=== PATIENT | female | born 1990 | race Caucasian/White ===

== ENCOUNTER 2018-01-01 19:32 | Inpatient (IN) | payer OTHER ==
[2018-01-01 21:01] LABS: #Eosinphils 0.1 thou/uL (0.0-0.7); #Lymphocytes 2.7 thou/uL (1.20-3.40); #Monocytes 0.5 thou/uL (0.11-0.59); #Neutrophils 5.3 thou/uL (1.40-6.50); %Basophils 0.6 % (0.0-1.0); %Eosinophils 0.7 % (0.0-10.0); %Lymphocytes 31.1 % (21.0-51.0); %Monocytes 5.3 % (0.0-10.0); %Neutrophils 62.4 % (42.0-75.0); Hemoglobin 13.7 g/dL (12.0-16.0); Mean Corpuscular HGB CONC 36.4 g/dL (32.0-36.0); Mean Corpuscular Hemoglobin 33.6 pg (27.0-31.0); Mean Corpuscular Volume 92.2 fL (78.0-98.0); Mean Platelet Volume 7.4 fL (7.4-10.4); Platelet Count 271 thou/uL (130-400); RBC Distribution Width 11.8 % (11.5-14.5); Red Blood Cell (RBC) Count 4.07 mill/uL (4.20-5.40); White Blood Cell (WBC) Count 8.5 thou/uL (4.8-10.8)
--- NOTE | 2018-01-01 21:19 | PDOC.FPRHP ---
- History of Present Illness Chief Complaint: vomiting/rabdo tx History of Present Illness: Patient is a 27 yo F presenting with vomiting and diarrhea since this morning. Patient states she had a hard arm workout on Wednesday - she began to feel sore, fatigued, and began to throw up yesterday. She went to the ER in [place] where they diagnosed her with [place]dom[place] [address] at this time. Patient endorses vomiting X2 and diarrhea since last night. She also endorses crampy abdominal pain since yesterday as well as a headache. She denies fever, chest pain, SOB, or change in urine color. - Allergies/Adverse Reactions Allergies Allergy/AdvReac Type Severity Reaction Status Date / Time hepatitis B immune globulin Allergy Verified 01/01/18 23:12 - Home Medications Medication Instructions Recorded Confirmed Type Omeprazole/Sodium Bicarbonate 40 mg PO DAILY 01/01/18 01/01/18 History [Omeprazole-Bicarb 40-1,100 Cap] clonazePAM [Clonazepam] 0.5 mg PO DAILY 01/01/18 01/01/18 History - History PMHx: GERD, gastritis PSHx: cholecystectomy FHx: father: HBP, HLD Social: denies tobacco or drug use; occasionally drinks alcohol - Review of Systems General: reports: fatigue. denies: fever/chills, weight/appetite/sleep changes , night sweats Eyes: denies: eye pain, vision changes ENT: denies: nasal congestion, rhinorrhea Respiratory: denies: cough, congestion, shortness of breath, exercise intolerance Cardiovascular: denies: chest pain, palpitation, edema Gastrointestinal: reports: nausea, vomiting (X2 episodes), diarrhea (X1 episode) , abdominal pain (crampy pain that comes and goes). denies: constipation, GI bleeding Genitourinary: denies: incontinence, dysuria, polyuria Skin: denies: rashes, lesions, itching Musculoskeletal: reports: pain. denies: tenderness, stiffness, swelling Neurological: denies: numbness, syncope, seizure, weakness Psychological: denies: anxiety, depression - Vital signs BP: 13/77 HR: 79 RR: 16 Tmax: 98.4 Pox: 96% on RA Wt: 95.25kg - Physical Exam Constitutional: NAD, awake, alert and oriented, well developed HEENT: normocephalic and atraumatic, EOMI, grossly normal vision, grossly normal hearing, other (MM dry) Heart: RRR, normal S1/S2, no murmurs/rubs/gallops, pulses present Lungs: CTAB, no respiratory distress, good air movement, no rales/rhonchi, no wheezing Abdomen: soft, non-tender, bowel sounds present, no masses/distention Musculoskeletal: normal structure, normal tone, ROM grossly normal Neurological: no focal deficit, CN II-XII intact Skin: no rash/lesions, good turgor, capillary refill <2 seconds Psychiatric: normal mood and affect FMR H&P: Results - Labs Result Diagrams: 01/01/18 20:51 01/02/18 05:18 Lab results: WBC 8.5 thou/uL (4.8-10.8) 01/01/18 20:51 Hgb 13.7 g/dL (12.0-16.0) 01/01/18 20:51 Hct 37.6 % (36.0-47.0) 01/01/18 20:51 MCV 92.2 fL (78.0-98.0) 01/01/18 20:51 Plt Count 271 thou/uL (130-400) 01/01/18 20:51 Neutrophils % 62.4 % (42.0-75.0) 01/01/18 20:51 CK - > 40,000 Na 140 K 3.4 Cl 105 CO2 23 Gluc 97 BUN 4.1 Cr 0.7 Albumin 4.4 T. Bili 1.0 AST 468 ALT 140 ALK 83 Ca 9.80 - EKG Interpretation EKG: normal sinus rhythm FMR H&P: A/P - Problem List (1) Rhabdomyolysis Current Visit: Yes Status: Acute Code(s): M62.82 - RHABDOMYOLYSIS Assessment and Plan: - Admit to medicine - Strict I&Os - Will begin LR 1000 mls @ 300mls/hr - zofran PRN for nausea - BMP Q4hr X 6 - CMP, CK in the AM - Will obtain UDS, serum alcohol (2) GERD (gastroesophageal reflux disease) Current Visit: Yes Status: Acute Code(s): K21.9 - GASTRO-ESOPHAGEAL REFLUX DISEASE WITHOUT ESOPHAGITIS Assessment and Plan: - Continue home med of Omeprazole 40mg - Plan DISPO: admit to medicine, likely >2 night stay Discussed case with Dr. Newton CODE: FULL FMR H&P: Upper Level - Pertinent history 27 y/o F w/ no sig PMHx presents for eval of worsening UE pain and elevated CK from check yesterday found at [place] ER. Pt reportedly performed an intense upper body work-out w/ severe UE cramping pain on Wednesday. Her pain was not improving which prompted her ER visit. Initial CK from yesterday was 23K and patient was told to return if her sxs did not improve or if she began to have nausea and vomitting. Pt reports onset of diarrhea last night and nausea and vomitting x2 today prompting return visit. Repeat CK >40,000. Pt denies any red discoloration to her urine. Endorses continued crampy UE pain L>R. No other complaints. Denies any numbness and tingling in her UE's. Pt was give 2L NS in the ER. - Pertinent findings Vitals Bp 123/77 HR 79 RR 16 O2sat 96% RA Temp 98.4 Weight 95.25 kg CK >40,000 Na 140 K 3.4 Cl 105 CO2 23 Gluc 97 BUN 4.1 Cr 0.7 Albumin 4.4 T. Bili 1.0 AST 468 ALT 140 ALK 83 Ca 9.80 WBC 8.46 Hgb 14.2 EKG - NSR at [address] segment changes or T-wave inversion identified - Plan Date/Time: 01/01/182115 Yumiko Viveros MD, have evaluated this patient and agree with findings/plan as outlined by international trade manager resident. Pertinent changes/additions are listed here. 27 y/o F w/: 1. Rhabdomyolysis w/ significantly elevated CK >40,000 - Pt given 2L NS prior to admission. Will give an additional 1Lbolus of NS then start IVF at a rate of 300 mL/hr with strict I/Os for goal UOP of 200-300 mL/ Hr in hopes to prevent heme-induced RADHA. Will adjust IVF rate to meet this goal. Will defer starting bicarbonate at this time 2/2 no clear evidence that alkaline diuresis is more effective than saline diuresis in preventing RADHA. -Upon review of lab work from outside ER, pt w/o RADHA, hypocalcemia, or gross electrolyte abnormality. Will add a phosphate and uric acid for complete work- up. Pt w/ good distal pulses and no neurological findings concerning for compartment syndrome at this time. Will continue to monitor. - Pt given NS w/ 20KCl in outside ER, will continue to monitor potassium level and supplement PRN -During the initial fluid resuscitation phase will plan to check BMP q4hrs to monitor for development of electrolyte abnormalities. If this remains stable will plan to space these out. 2. Transaminitis likely 2/2 #1 This is likely due to pts comorbid rhabdomyolysis. However, the work-out that patient described does not sound intensive enough to cause such an elevation of her CK. Will plan to check UDS and serum EtOH to r/o other possible etiologies. 3. GERD Will continue w/ home omeprazole CODE STATUS: FULL CODE LOS: >2 midnights Attending Addendum - Attending Addendum Date/Time: 01/02/18 1810 I personally evaluated the patient and discussed the management with Dr. Geraldine Estrada. I agree with the History, Examination, Assessment and Plan documented above with any addition or exceptions noted below. 27 y/o F with worsening Bilateral UE pain and elevated CK after evaluation yesterday at [place] ER. She underwent an intense upper body workout lasting ~ 45 minutes and subsequently developed severe Bilat UE cramping pain on Wednesday. Her pain was not improving which prompted her ER visit. Initial CK from [place] yesterday was 23,000 and patient was told to return if her sxs did not improve or if she began to have nausea and vomitting. Pt reports onset of diarrhea last night, nausea and vomitting x2, and Headache today prompting return visit. Repeat CK >40,000. Pt denies any red discoloration to her urine. Endorses continued crampy Bilat UE pain L>R. No other complaints.Pt was give 2L NS in the ER. and started on LR at 200 ml/Hr. This morning her CK is down wot 28,814 and she feels better. PMH: GERD, Cholecystectomy. Moderately obese female in NAD. HEENT WNL. Lungs: CTA Cor: RRR, no murmur Abd: soft nontender. no masses Ext: Minimally tender triceps. no swelling, or bruising or lesions. No edema. A: Acute Rhabdomyolysis due to overuse exercise program in patient deconditioned. P: Continue high flow rate fluids LR at 200/hr. If nursing unable to get LR when current bag runs out may switch to NS, at least temporarily. Recheck renal fn and CK in am. [facility]
[2018-01-01 21:24] LABS: ALT (SGPT) 143 U/L (8-55); AST (SGOT) 475 U/L (5-34); Albumin 4.3 g/dL (3.5-5.0); Alkaline Phosphatase 84 U/L (40-150); Anion Gap 14 mmol/L (10-20); BUN (Urea Nitrogen) 4 mg/dL (7.0-18.7); Calc. Creatinine Clearance 0 mL/min (70-130); Calcium 9.1 mg/dL (7.8-10.44); Carbon Dioxide 20 mmol/L (22-29); Chloride 110 mmol/L (98-107); Estimated GFR-MDRD Greater than 90; Globulin 2.8 g/dL (2.4-3.5); Glucose 87 mg/dL (70-105); Potassium 3.5 mmol/L (3.5-5.1); Protein, Total 7.1 g/dL (6.0-8.3); Sodium 140 mmol/L (136-145)
[2018-01-01 21:50] LABS: CK (CPK) 34577 U/L (29-168)
[2018-01-01] MEDS ORDERED: HYDROcodone/Acetaminophen 10/325 mg Tablet ONE (22:05)
[2018-01-01] MEDS ORDERED: Lactated Ringer's 1,000 ML IV SCH (23:00)
[2018-01-01 23:16] VITALS: BMI 43.4
[2018-01-01] MEDS ORDERED: Sodium Chloride 0.9% 1,000 ML IV SCH (23:19)
[2018-01-01] MEDS ORDERED: Acetaminophen 325 MG TAB PO PRN (23:38)
[2018-01-01] MEDS ORDERED: Acetaminophen 650 MG Suppository PR PRN (23:38)
[2018-01-01] MEDS ORDERED: Ondansetron HCl/PF 4 MG/2 ML Vial IVP PRN (23:38)
[2018-01-01 23:57] LABS: Alcohol Less than 10 mg/dL (Less than 10); Magnesium 2.1 mg/dL (1.6-2.6)
[2018-01-02] MEDS: Lactated Ringer's 1,000 ML IV SCH ×6 (00:23→19:57)
[2018-01-02 01:25] LABS: Anion Gap 12 mmol/L (10-20); BUN (Urea Nitrogen) 4 mg/dL (7.0-18.7); Calc. Creatinine Clearance 228 mL/min (70-130); Calcium 8.9 mg/dL (7.8-10.44); Carbon Dioxide 24 mmol/L (22-29); Chloride 108 mmol/L (98-107); Estimated GFR-MDRD Greater than 90; Glucose 88 mg/dL (70-105); Potassium 3.5 mmol/L (3.5-5.1); Sodium 140 mmol/L (136-145)
[2018-01-02 03:18] LABS: Amphetamine Not Detected (NotDetected); Barbiturates Screen Not Detected (NotDetected); Benzodiazepine Screen Not Detected (NotDetected); Cocaine Metabolite Screen Not Detected (NotDetected); Medtox Control Line Valid? VALID (VALID); Medtox Reader # READER 4; Methadone Not Detected (NotDetected); Methamphetamine Not Detected (NotDetected); Opiate Screen Detected (NotDetected); Oxycodone Screen Not Detected (NotDetected); Phencyclidine (PCP) Not Detected (NotDetected); THC/Cannabinoid Screen Not Detected (NotDetected); Tricyclic Screen Not Detected (NotDetected)
[2018-01-02 06:13] LABS: ALT (SGPT) 165 U/L (8-55); AST (SGOT) 482 U/L (5-34); Albumin 3.8 g/dL (3.5-5.0); Alkaline Phosphatase 94 U/L (40-150); Anion Gap 11 mmol/L (10-20); BUN (Urea Nitrogen) 4 mg/dL (7.0-18.7); Bilirubin, Total 1.2 mg/dL (0.2-1.2); Calc. Creatinine Clearance 248 mL/min (70-130); Carbon Dioxide 22 mmol/L (22-29); Chloride 108 mmol/L (98-107); Estimated GFR-MDRD Greater than 90; Globulin 2.4 g/dL (2.4-3.5); Glucose 83 mg/dL (70-105); Potassium 3.5 mmol/L (3.5-5.1); Protein, Total 6.2 g/dL (6.0-8.3); Sodium 137 mmol/L (136-145)
[2018-01-02 06:46] LABS: CK (CPK) 28814 U/L (29-168)
--- NOTE | 2018-01-02 07:33 | PDOC.FM ---
- Subjective Subjective: NAEO. Patient denies hematuria and abdominal pain. Experienced a HOFFMAN yesterday evening but pain resolved with [place]. No other complaints. - Objective MAR Reviewed: Yes Vital Signs & Weight: Vital Signs (12 hours) Temp Pulse Resp BP Pulse Ox 01/02/18 05:38 98.3 F 71 16 109/61 98 01/01/18 23:43 98.5 F 55 L 20 96 01/01/18 22:51 98.5 F 55 L 20 121/67 96 Weight Weight 104.19 kg I&O: 01/01/18 01/02/18 01/03/18 06:59 06:59 06:59 Intake Total 1321 Output Total 500 Balance 821 Result Diagrams: 01/01/18 20:51 01/02/18 05:18 Phys Exam - Physical Examination Constitutional: NAD HEENT: moist MMs Respiratory: no wheezing, no rales Cardiovascular: RRR, no significant murmur Gastrointestinal: soft, non-tender Musculoskeletal: no edema Psychiatric: normal affect, A&O x 3 Dx/Plan (1) GERD (gastroesophageal reflux disease) Code(s): K21.9 - GASTRO-ESOPHAGEAL REFLUX DISEASE WITHOUT ESOPHAGITIS Status: Acute (2) Rhabdomyolysis Code(s): M62.82 - RHABDOMYOLYSIS Status: Acute (3) Transaminitis Code(s): R74.0 - NONSPEC ELEV OF LEVELS OF TRANSAMNS & LACTIC ACID DEHYDRGNSE Status: Acute - Plan Plan: 27 yo with Rhabdomyolysis 1. Rhabdomyolysis w/ significantly elevated CK >40,000 - Pt completed 1L bolus of NS x3. Currently on LR at 200mL/hr -Strict I/Os for goal UOP of 200-300mL to closely monitor and prevent heme- induced RADHA -Will trend creatine kinase and discharge when CK <10,000 or sooner depending on how patient is clinically faring 2. Transaminitis likely 2/2 #1 -This is likely due to pts comorbid rhabdomyolysis. -UDS + opiates probably from pain medications -Will further investigate other sources of transaminitis 3. GERD Will continue w/ home omeprazole CODE STATUS: FULL CODE LOS: >2 midnights Dispo: Continue maintenance fluids with close monitoring for heme-induced RADHA. Trend CK & CMPs. Discussed plan with Dr. Newton
[2018-01-03] MEDS: Lactated Ringer's 1,000 ML IV SCH ×4 (01:04→12:44)
[2018-01-03 05:55] LABS: ALT (SGPT) 170 U/L (8-55); AST (SGOT) 384 U/L (5-34); Alkaline Phosphatase 91 U/L (40-150); Anion Gap 12 mmol/L (10-20); BUN (Urea Nitrogen) 4 mg/dL (7.0-18.7); Bilirubin, Total 0.9 mg/dL (0.2-1.2); Calc. Creatinine Clearance 224 mL/min (70-130); Calcium 9.1 mg/dL (7.8-10.44); Carbon Dioxide 24 mmol/L (22-29); Chloride 107 mmol/L (98-107); Estimated GFR-MDRD Greater than 90; Globulin 2.6 g/dL (2.4-3.5); Glucose 78 mg/dL (70-105); Potassium 3.4 mmol/L (3.5-5.1); Protein, Total 6.6 g/dL (6.0-8.3); Sodium 140 mmol/L (136-145)
[2018-01-03 06:20] LABS: CK (CPK) 21331 U/L (29-168)
[2018-01-03] MEDS: Sodium Chloride 0.9% 1,000 ML IV SCH ×2 (06:50→12:43)
--- NOTE | 2018-01-03 08:38 | PDOC.FM ---
- Subjective Subjective: Pt. and her nurse state she did well overnight. Pt. states that she had some chest pain over night. One of the locations was epigastric and consistent with her gerd. The other pain was in her left upper chest. She denies any radiation of pain. She states both are mild. She denies SOB. She also states that she had a left sided, sharp abdominal pain that last only for a few seconds and has not returned. Pt. states she has been walking some without trouble. She also has had some diarrhea which she states is normal for her. - Objective MAR Reviewed: Yes Vital Signs & Weight: Vital Signs (12 hours) Temp Pulse Resp BP Pulse Ox 01/03/18 07:03 98.5 F 62 18 117/76 97 01/03/18 05:00 98.1 F 54 L 16 106/71 96 01/03/18 01:08 98.3 F 73 114/76 95 Weight Weight 104.19 kg I&O: 01/02/18 01/03/18 01/04/18 06:59 06:59 06:59 Intake Total 1321 3070 Output Total 500 1500 Balance 821 1570 Result Diagrams: 01/01/18 20:51 01/03/18 03:56 Additional Labs: CK: 21,331 <Elpidio Anderson - Last Filed: 01/03/18 08:33> - Objective Vital Signs & Weight: Vital Signs (12 hours) Temp Pulse Resp BP Pulse Ox 01/03/18 07:03 98.5 F 62 18 117/76 97 01/03/18 05:00 98.1 F 54 L 16 106/71 96 01/03/18 01:08 98.3 F 73 114/76 95 Weight Weight 104.19 kg I&O: 01/02/18 01/03/18 01/04/18 06:59 06:59 06:59 Intake Total 1321 3070 Output Total 500 1500 Balance 821 1570 Result Diagrams: 01/01/18 20:51 01/03/18 03:56 <Daron Foreman - Last Filed: 01/03/18 09:31> Phys Exam - Physical Examination Constitutional: NAD HEENT: PERRLA, moist MMs Neck: no JVD, full ROM Respiratory: no wheezing, clear to auscultation bilateral tenderness to palpation of pectoralis muscle, likely sore muscle 2/2 rhabdo Cardiovascular: RRR, no significant murmur Gastrointestinal: soft, no distention, positive bowel sounds TTP in lower abdomen, improved from admission Musculoskeletal: no edema, pulses present Neurological: non-focal, normal sensation Psychiatric: normal affect, A&O x 3 Skin: no rash, normal turgor <Elpidio Anderson - Last Filed: 01/03/18 08:33> Dx/Plan (1) GERD (gastroesophageal reflux disease) Code(s): K21.9 - GASTRO-ESOPHAGEAL REFLUX DISEASE WITHOUT ESOPHAGITIS Status: Acute (2) Rhabdomyolysis Code(s): M62.82 - RHABDOMYOLYSIS Status: Acute (3) Transaminitis Code(s): R74.0 - NONSPEC ELEV OF LEVELS OF TRANSAMNS & LACTIC ACID DEHYDRGNSE Status: Acute - Plan Plan: This is a 27 yo H F with a pmh of gerd Rhabdomyolysis -Continue LR at 200 mL/hr -left chest pain likely 2/2 workout/rhabdo -Continue trending CK -Consider discharging tomorrow if CK drops below 10,000 -AM CMP -Strict I&Os Transaminitis likely 2/2 to above -Continue IV fluids -Continue to trend GERD -Continuing home medication Code: Full Family: friend at bedside Prophylaxis: omeprazole, <Elpidio Anderson - Last Filed: 01/03/18 08:33> Attending Addendum - Attending Addendum Date/Time: 01/03/18925 I personally evaluated the patient and discussed the management with Dr. Anderson I agree with the History, Examination, Assessment and Plan documented above with any addition or exceptions noted below. 27HF admitted for rhabdomyolysis. Initial CK done in the ER was above 40K. With aggressive IVF, CK has trended down to 21K on this mornings CMP. Her vital signs have been normal since admission. She is slowly improving from a clinical standpoint. Etiology appears to be exercise induced as her UDS was negative and she is on no medications that would lead to rhabdo. Continue IVF and trend CK with likely d/c home tomorrow pending labs. <Daron Foreman - Last Filed: 01/03/18 09:31>
[2018-01-04 05:06] LABS: ALT (SGPT) 168 U/L (8-55); AST (SGOT) 330 U/L (5-34); Albumin 4.1 g/dL (3.5-5.0); Alkaline Phosphatase 87 U/L (40-150); Anion Gap 13 mmol/L (10-20); BUN (Urea Nitrogen) 4 mg/dL (7.0-18.7); Bilirubin, Total 0.9 mg/dL (0.2-1.2); Calc. Creatinine Clearance 214 mL/min (70-130); Calcium 9.4 mg/dL (7.8-10.44); Carbon Dioxide 26 mmol/L (22-29); Chloride 104 mmol/L (98-107); Estimated GFR-MDRD Greater than 90; Globulin 2.6 g/dL (2.4-3.5); Glucose 85 mg/dL (70-105); Potassium 3.2 mmol/L (3.5-5.1); Protein, Total 6.7 g/dL (6.0-8.3); Sodium 140 mmol/L (136-145)
--- NOTE | 2018-01-04 05:29 | PDOC.FM ---
- Subjective Subjective: Pt. states that she did well overnight. She states that she has continued to drink plenty of fluids. She states that her upper left chest pain is improved and her belly pain has improved. She is wanting to go home today. - Objective MAR Reviewed: Yes Vital Signs & Weight: Vital Signs (12 hours) Temp Pulse Resp BP Pulse Ox 01/03/18 20:00 98.3 F 82 18 115/78 97 Weight Weight 104.19 kg I&O: 01/02/18 01/03/18 01/04/18 06:59 06:59 06:59 Intake Total 1321 3070 4640 Output Total 500 1500 2601 Balance 821 1570 2039 Result Diagrams: 01/01/18 20:51 01/04/18 03:56 <Elpidio Anderson - Last Filed: 01/04/18 08:56> - Objective Vital Signs & Weight: Vital Signs (12 hours) Temp Pulse Resp BP Pulse Ox 01/04/18 07:35 97.8 F 55 L 18 95 01/04/18 07:10 97.8 F 55 L 18 101/61 95 Weight Weight 104.19 kg I&O: 01/03/18 01/04/18 01/05/18 06:59 06:59 06:59 Intake Total 3070 7640 Output Total 1500 6101 Balance 1570 1539 Result Diagrams: 01/01/18 20:51 01/04/18 03:56 <Daron Foreman - Last Filed: 01/04/18 09:32> Phys Exam - Physical Examination Constitutional: NAD HEENT: PERRLA, moist MMs Neck: no JVD, full ROM Respiratory: no wheezing, clear to auscultation bilateral Cardiovascular: RRR, no significant murmur Gastrointestinal: soft, no distention, positive bowel sounds mild tenderness to palpation in epigastric region Musculoskeletal: no edema, pulses present Neurological: non-focal, normal sensation Lymphatic: no nodes Psychiatric: normal affect, A&O x 3 Skin: no rash, normal turgor <Elpidio Anderson - Last Filed: 01/04/18 08:56> Dx/Plan (1) GERD (gastroesophageal reflux disease) Code(s): K21.9 - GASTRO-ESOPHAGEAL REFLUX DISEASE WITHOUT ESOPHAGITIS Status: Acute (2) Rhabdomyolysis Code(s): M62.82 - RHABDOMYOLYSIS Status: Acute (3) Transaminitis Code(s): R74.0 - NONSPEC ELEV OF LEVELS OF TRANSAMNS & LACTIC ACID DEHYDRGNSE Status: Acute - Plan Plan: This is a 27 yo H F with a PMH of GERD Rhabdomyolysis -Continue PO hydration -CK continues to trend down -Will discharge today -Will contact pt.s PCP to discuss hospital course -Encouraged to drink lots of water with exercise and to slowly progress to more difficult exercise levels Transaminitis -Continue PO hydration -Liver enzymes are trending down Hypokalemia -Encourage potassium rich diet GERD -Continue home medication Code: Full Family: Prophylaxis: Disposition: home today <Elpidio Anderson - Last Filed: 01/04/18 08:56> Attending Addendum - Attending Addendum Date/Time: 01/04/18928 I personally evaluated the patient and discussed the management with Dr. Anderson I agree with the History, Examination, Assessment and Plan documented above with any addition or exceptions noted below. 27F on HD #3 for rhabdomyolysis. Patients CK has trended down to 14,000. She is off of IVF and tolerating PO hydration. No complaints this morning, she denies any MSK pain. Vital signs normal overnight. She is stable for discharge at this time. We will speak with PCP regarding this hospital stay in case future work up is indicated. <Daron Foreman - Last Filed: 01/04/18 09:32>
[2018-01-04 05:51] LABS: CK (CPK) 14583 U/L (29-168)
[2018-01-04 11:02] VITALS: BP 110/76; TEMP 98.2
--- NOTE | 2018-01-05 01:05 | DIS-2 ---
DATE OF ADMISSION: 01/01/2018 DATE OF DISCHARGE: 01/04/2018 RESIDENT: Elpidio Anderson DO ADMITTING ATTENDING: Dr. Newton. DISCHARGE ATTENDING: Dr. Foreman. CONSULTATIONS: None. PROCEDURES: None. PRIMARY DIAGNOSIS: Rhabdomyolysis. SECONDARY DIAGNOSIS: Transaminitis. DISCHARGE MEDICATIONS: None. DISCONTINUED MEDICATIONS: None. HISTORY OF PRESENT ILLNESS AND HOSPITAL COURSE: This is a 27-year-old female who presented Wednesday night on the with nausea, vomiting, diarrhea, and sore arms. She had done an arm workout on the previous Wednesday. She has been seen in the [facility] on Wednesday and was diagnosed with rhabdomyolysis with CK of 23,000. In the ER on Wednesday, she had a CK of 40,000. AST of 475 and ALT of 143. While she was in the hospital, she underwent IV fluid resuscitation with lactated Ringer's, trying to maintain a urine output of 200-300 mL per hour. We trended her CK and liver enzymes and they downtrended to the time of her discharge. CK 14,000. AST 330, ALT 168. She tolerated IV and p.o. hydration. Her primary care physician, physicians quentin Tapia, were contacted. DISPOSITION: Stable. DISCHARGE INSTRUCTIONS: 1. Location: Home. 2. Diet: Regular. 3. Activity: Ad j luis. 4. Follow up with primary care doctor in the next 1-2 weeks. MTDD
== END 2018-01-04 11:00 | disposition home or self-care (01) | DRG 558 ==
LOC: ERS 19:32 → 2SW 21:49 → OBSVTOIN 21:49 → T4-B 01-02 09:59
PROVIDERS: ADMIT Family Medicine; ATTEND Family Medicine
DX: M62.82 Rhabdomyolysis (principal); Z68.41 Body mass index [BMI] 40.0-44.9, adult; R74.0 Nonspecific elevation of levels of transaminase and lactic acid dehydrogenase [LDH]; K21.9 Gastro-esophageal reflux disease without esophagitis; E87.6 Hypokalemia; E66.9 Obesity, unspecified; Z90.49 Acquired absence of other specified parts of digestive tract
CPT/HCPCS: 36415; 80048; 80053; 80306; 80307; 82550; 83735; 85025; 85652; 96360; 96361